=== PATIENT | female | born 1990 | race Caucasian/White ===

== ENCOUNTER 2022-10-31 15:26 | Outpatient (CLI) | payer OTHER ==
[~2022-10-31] VITALS: Ht 162.6 cm; Wt 73.3 kg
[2022-10-31 15:49] VITALS: BP 131/62
[2022-10-31] MEDS ORDERED: GNP250TA9 PO (16:16)
[2022-10-31] MEDS ORDERED: MULT1TAB8 PO (16:16)
[2022-10-31] MEDS ORDERED: CALC500C16 PO (16:16)
== END 2022-10-31 16:57 | disposition home or self-care (01) ==
LOC: M LDO 15:26
PROVIDERS: ATTEND Advanced Practice Midwife
DX: O36.8130 Decreased fetal movements, third trimester, not applicable or unspecified (principal); O48.0 Post-term pregnancy; O47.1 False labor at or after 37 completed weeks of gestation; Z3A.40 40 weeks gestation of pregnancy
CPT/HCPCS: 59025; G0463

== ENCOUNTER 2022-11-06 19:37 | Inpatient (IN) | payer OTHER ==
[2022-11-06] VITALS (8 sets, daily range): BP systolic 105–122; BP diastolic 57–78
[~2022-11-06] VITALS: Ht 162.6 cm; Wt 72.4 kg
[~2022-11-06 19:37] MED LIST: CALC500C16 PO; GNP250TA9 PO; MULT1TAB8 PO
[2022-11-06] MEDS ORDERED: PENICILLIN G POTASSIUM 5 MU IV 5 MU in D5W MINI-BAG PLUS 100 ML IV STA (20:21)
[2022-11-06] MEDS ORDERED: CARBOPROST TROMETHAMINE 250 MCG/ML AMP IM PRN (20:25)
[2022-11-06] MEDS ORDERED: TRANEXAMIC ACID INJection 1,000 MG in NS 100 ML IV PRN (20:25)
[2022-11-06] MEDS ORDERED: LIDOCAINE 1% MDV 20ML VIAL INFIL PRN (20:25)
[2022-11-06] MEDS ORDERED: OXYTOCIN DRIP 30 UNITS in IV 1 EA IV PRN ×6 (20:25)
[2022-11-06] MEDS ORDERED: miSOPROStol 50MCG 1/2 TABLET PO PRN (20:25)
[2022-11-06] MEDS ORDERED: METHYLERGONOVINE MALEATE 0.2MG/ML 1ML VIAL IM PRN (20:25)
[2022-11-06] MEDS ORDERED: OXYTOCIN INJ 10UNITS/ML 1ML VIAL IM PRN (20:25)
[2022-11-06] MEDS ORDERED: OXYTOCIN DRIP 30 UNITS in IV 1 EA IV SCH (20:25)
[2022-11-06] MEDS ORDERED: OXYTOCIN INJ 10UNITS/ML 1ML VIAL IV PRN (20:25)
[2022-11-06 20:52] LABS: HEMOGLOBIN 11.4 g/dl (12.0-15.5); MEAN CORPUSCULAR HEMOGLOBIN 31.9 pg (27.0-33.0); MEAN CORPUSCULAR HGB CONC 33.5 g/dl (32.0-36.5); MEAN CORPUSCULAR VOLUME 95.2 fl (80.0-96.0); PLATELET COUNT, AUTOMATED 234 10^3/uL (150-450); RED BLOOD COUNT 3.57 10^6/uL (4.00-5.40); WHITE BLOOD COUNT 7.9 10^3/uL (4.0-10.0)
[2022-11-06] MEDS: LR 1,000 ML IV SCH (21:36)
[2022-11-06] MEDS ORDERED: COLA100C5 PO (23:01)
[2022-11-06] MEDS ORDERED: ECOT81TA5 PO (23:01)
[2022-11-06] MEDS ORDERED: HOME MED LIST COMPLETE! XX SCH (23:05)
[2022-11-07] VITALS (36 sets, daily range): BP systolic 101–150; BP diastolic 56–96
[2022-11-07] MEDS: PEN G POT 3,000,000 UNIT/50 ML 3,000,000 UNIT in IV 1 EA IV SCH ×3 (01:29→09:00)
[2022-11-07] MEDS: LR 1,000 ML IV SCH ×3 (01:29→18:08)
[2022-11-07] MEDS ORDERED: ONDANSETRON 4MG 2ML VIAL IV PRN (04:35)
[2022-11-07] MEDS ORDERED: diphenhydrAMINE 50MG/ML VIAL IV PRN (04:35)
[2022-11-07] MEDS ORDERED: EPIDURAL/PCA KEYS XX PRN (04:35)
[2022-11-07] MEDS ORDERED: ePHEDrine SULFATE 25 MG/5 ML(5MG/ML) SYRINGE IVP PRN (04:35)
[2022-11-07] MEDS ORDERED: NALOXONE INJ 0.4MG/1ML VIAL IV PRN (04:35)
[2022-11-07] MEDS ORDERED: LR 500 ML IV PRN (04:35)
[2022-11-07] MEDS: FENTANYL/ROPIVACAINE/NACL BAG 100 ML EPIDURAL SCH ×2 (05:12→14:35)
[2022-11-07 06:29] LABS: CORD GAS ABE V -4.4; CORD GAS HCO3 V 24.5 MEQ/L; CORD GAS O2 SAT V 29.5 %; CORD GAS PCO2 V 59.8 mmHg; CORD GAS PH V 7.23 UNITS; CORD GAS PO2 V 17.5 mmHg; CORD GAS SBC V 19.1 MEQ/L; CORD GAS TCO2 V 26.3 MEQ/L
[2022-11-07 06:30] LABS: CORD GAS ABE A -7.4; CORD GAS HCO3 A 20.9 MEQ/L; CORD GAS O2 SAT A 48.2 %; CORD GAS PCO2 A 52.4 mmHg; CORD GAS PH A 7.218 UNITS; CORD GAS SBC A 17.4 MEQ/L; CORD GAS TCO2 A 22.5 MEQ/L
[2022-11-07] MEDS ORDERED: ANUSOL HC CREAM 30GM TOP PRN (06:30)
[2022-11-07] MEDS ORDERED: ACETAMINOPHEN 500 MG TAB PO PRN (06:30)
[2022-11-07] MEDS ORDERED: DIBUCAINE 1% OINTMENT 30GM TOP PRN (06:30)
[2022-11-07] MEDS ORDERED: METHYLERGONOVINE MALEATE 0.2 MG TAB PO PRN (06:30)
[2022-11-07] MEDS ORDERED: RHOGAM 300MCG (1500IU) INJ IM SCH (06:30)
[2022-11-07] MEDS ORDERED: MOM 30ML SUSPENSION UDC PO PRN (06:30)
[2022-11-07] MEDS: PRENATAL VITAMINS CHEWABLE TABLET PO SCH (09:00)
[2022-11-07] MEDS: DOCUSATE SODIUM 100MG CAPSULE PO SCH ×2 (09:00→21:59)
[2022-11-07] MEDS: IBUPROFEN 800 MG TAB PO PRN (18:31)
[2022-11-08 06:00] VITALS: BP 117/60
[2022-11-08] MEDS: PRENATAL VITAMINS CHEWABLE TABLET PO SCH (08:50)
[2022-11-08] MEDS: DOCUSATE SODIUM 100MG CAPSULE PO SCH (08:50)
[2022-11-08] MEDS: IBUPROFEN 800 MG TAB PO PRN (08:50)
== END 2022-11-08 14:40 | disposition home or self-care (01) | DRG 807 ==
LOC: M LDI 19:37 → M OBS 11-07 14:38
PROVIDERS: ADMIT Obstetrics & Gynecology; ATTEND Obstetrics & Gynecology
PROC: 3E033VJ Introduction of Other Hormone into Peripheral Vein, Percutaneous Approach (ICD-10-PCS; 2022-11-06)
PROC: 10E0XZZ Delivery of Products of Conception, External Approach (ICD-10-PCS; principal; 2022-11-07)
PROC: 10907ZC Drainage of Amniotic Fluid, Therapeutic from Products of Conception, Via Natural or Artificial Opening (ICD-10-PCS; 2022-11-07)
DX: O48.0 Post-term pregnancy (principal); Z37.0 Single live birth; Z3A.41 41 weeks gestation of pregnancy; O99.824 Streptococcus B carrier state complicating childbirth